=== PATIENT | male | born 1935 | race Asian ===

== ENCOUNTER 2016-08-26 17:00 | Emergency (ER) | payer MEDICARE, OTHER ==
[~2016-08-26] VITALS: Ht 162.6 cm; Wt 43.2 kg
[~2016-08-26 17:00] MED LIST: NOCURR
[2016-08-26] MEDS ORDERED: CHOLESTEROL (17:15)
[2016-08-26 18:22] VITALS: BP 167/91
[2016-08-26] MEDS ORDERED: BACITRACIN 0.9 GM PACKET OINTMENT TP ONE (19:15)
[2016-08-26] MEDS ORDERED: PERTUSS(ACELL),DIPH,TET VAC/PF 0.5 ML VIAL IM ONE (19:15)
== END 2016-08-26 19:22 | disposition home or self-care (01) ==
LOC: EMS 17:03
DX: S51.811A Laceration without foreign body of right forearm, initial encounter (principal); W01.0XXA Fall on same level from slipping, tripping and stumbling without subsequent striking against object, initial encounter; Y93.89 Activity, other specified; Y92.9 Unspecified place or not applicable; Y99.9 Unspecified external cause status
CPT/HCPCS: 12002; 90471; 90715; 99283

== ENCOUNTER 2016-08-28 10:15 | Emergency (ER) | payer MEDICARE, OTHER ==
[~2016-08-28] VITALS: Ht 162.6 cm; Wt 58.1 kg
[~2016-08-28 10:15] MED LIST changes: +CHOLESTEROL; -NOCURR
[2016-08-28 10:27] VITALS: BP 152/84
[2016-08-28] MEDS ORDERED: CEPH500 PO (10:40)
== END 2016-08-28 11:46 | disposition home or self-care (01) ==
LOC: EMS 10:16
DX: Z48.00 Encounter for change or removal of nonsurgical wound dressing (principal)
CPT/HCPCS: 99281

== ENCOUNTER 2016-09-04 12:32 | Emergency (ER) | payer MEDICARE, OTHER ==
[~2016-09-04] VITALS: Ht 162.6 cm; Wt 58.2 kg
[~2016-09-04 12:32] MED LIST changes: +CEPH500 PO; -CHOLESTEROL
[2016-09-04 14:37] VITALS: BP 138/82
== END 2016-09-04 14:42 | disposition home or self-care (01) ==
LOC: EMS 12:34
DX: Z48.00 Encounter for change or removal of nonsurgical wound dressing (principal)
CPT/HCPCS: 99281